=== PATIENT | male | born 1965 | race American Indian/Alaskan Native ===

== ENCOUNTER 2016-08-19 02:48 | Emergency (ER) | payer MEDICARE, OTHER ==
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
[2016-08-19] MEDS ORDERED: BOOSTRIX IM ONE (05:52)
[2016-08-19] MEDS ORDERED: AUGMENTIN 875 MG PO ONE (05:53)
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
[2016-08-19 08:28] VITALS: BP 99/75
== END 2016-08-19 08:27 ==
LOC: ED 02:48
DX: S02.2XXA Fracture of nasal bones, initial encounter for closed fracture (principal); S16.1XXA Strain of muscle, fascia and tendon at neck level, initial encounter; S00.83XA Contusion of other part of head, initial encounter; F10.920 Alcohol use, unspecified with intoxication, uncomplicated; M50.20 Other cervical disc displacement, unspecified cervical region; I10 Essential (primary) hypertension; F17.200 Nicotine dependence, unspecified, uncomplicated; Y04.0XXA Assault by unarmed brawl or fight, initial encounter; Y93.89 Activity, other specified; Y99.8 Other external cause status; Y92.89 Other specified places as the place of occurrence of the external cause
CPT/HCPCS: 70450; 70486; 71250; 72125; 90471; 90715

== ENCOUNTER 2016-10-26 09:54 | Outpatient (CLI) | payer OTHER ==
--- NOTE | 2016-10-26 12:08 | Magnetic Resonance Report ---
MRI CERVICAL SPINE WITH AND WITHOUT CONTRAST INDICATION: Cervical spine herniation. COMPARISON: 08/19/2016 CT. FINDINGS: Axial and sagittal T1 and T2-weighted MRI of the cervical spine performed before and after 15 mL Mutlihance intravenously. Normal vertebral body stature with mild degenerative spurring from C4-C7 noted. Straightening/slight cervical kyphosis apex at C4-C5 with mild adjacent edema signal in C4 and C5 vertebral bodies as well. Moderate C4-C5 disc degeneration and mild C5-C6 and C6-C7 disc narrowing as well. Small Schmorl's node and minimal adjacent edema signal along inferior endplate of C6. Normal remainder marrow signal. Intact craniocervical articulation and cervicomedullary junction. No abnormal intrinsic cord signal or enhancement. No Chiari malformation. On the obtained axial images: C2-C3 and C3-C4 are unremarkable. AP cord caliber approximately 8 mm. C4-C5 demonstrates approximately 3 mm central to right paracentral annular fissure and mild disc protrusion contacting/slightly flattening the cord ventrally, axial series 6, image 15. AP cord caliber approximately 7 mm. No significant foraminal narrowing. C5-C6 and C7-T1 reveal no cord compression or foraminal narrowing. C6-C7 demonstrates slight diffuse disc bulge with slight ventral thecal sac indentation. No cord compression. CONCLUSION: Mid to lower cervical spine degenerative changes, greatest at C4-C5, as detailed above. Please correlate. Thank you for the opportunity to participate in this patient's care.
== END 2016-10-26 09:55 | disposition home or self-care (01) ==
LOC: MRI 09:54
PROVIDERS: ATTEND Student in an Organized Health Care Education/Training Program
DX: M50.20 Other cervical disc displacement, unspecified cervical region (principal); M41.82 Other forms of scoliosis, cervical region; M47.892 Other spondylosis, cervical region; F17.200 Nicotine dependence, unspecified, uncomplicated; I10 Essential (primary) hypertension
CPT/HCPCS: 72156; A9577

== ENCOUNTER 2017-07-20 14:18 | Emergency (ER) | payer MEDICARE ==
--- NOTE | 2017-07-20 16:28 | Emergency Department Report ---
Blank Doc - Documentation Documentation: Patient is a 51-year-old -Turk[place] males poor historian who states he's had a sore throat cough is productive of bloody sputum for approximately 1 year. Patient states he has a primary doctor was not mentioned this to his primary doctor. Patient is having a hard time explaining why he decided to come to the emergency department today as opposed to other days this year. Patient on brief physical exam does have a coarse cough but otherwise lungs were clear. Throat there is some very mild erythema. Patient will have a chest x-ray done to rule out lung cancer tumors or other lesions.
[2017-07-20] MEDS ORDERED: MOTRIN PO ONE (16:32)
[2017-07-20] MEDS ORDERED: TESSALON PERLES PO ONE (16:32)
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
--- NOTE | 2017-07-20 18:21 | XRay Report ---
FINAL REPORT PROCEDURE: XR CHEST ROUTINE 2V TECHNIQUE: PA and lateral chest radiographs were obtained. CPT 17631 HISTORY: hemoptysis COMPARISON: CT 08/19/2016 FINDINGS: Heart: Normal. Mediastinum/Vessels: Normal. Lungs/Pleural space: There is patchy airspace opacity at the left lung base, with no effusion or pneumothorax identified Bony thorax: No acute osseous abnormality. Other: IMPRESSION: Patchy left lung base airspace opacity/infiltrate.
[2017-07-20 18:39] VITALS: BP 115/87
[2017-07-20] MEDS ORDERED: MAGIC MOUTHWASH PO SCH (20:00)
== END 2017-07-20 18:51 | disposition home or self-care (01) ==
LOC: ED 14:18
DX: J18.9 Pneumonia, unspecified organism (principal); J03.90 Acute tonsillitis, unspecified; I10 Essential (primary) hypertension; F17.200 Nicotine dependence, unspecified, uncomplicated; Z91.018 Allergy to other foods
CPT/HCPCS: 71046; 99283

== ENCOUNTER 2018-02-28 12:16 | Outpatient (CLI) | payer MEDICARE ==
[2018-02-28 12:54] LABS: Blood Urea Nitrogen 10 mg/dL (9-20)
--- NOTE | 2018-02-28 23:17 | Magnetic Resonance Report ---
FINAL REPORT PROCEDURE: MR LUMBAR SPINE WO/W CON TECHNIQUE: Magnetic resonance imaging of the lumbar spine was performed using standard pulse sequenc es without contrast material. CPT 79897 HISTORY: M47.816 SPONDYLOSIS WITHOUT MYELOPATHYOUTPATIENT COMPARISON: No prior studies are available for comparison. FINDINGS: Vertebral alignment and height are within normal limits with normal bone marrow signal. Conus medulla ris is normal in location and appearance. L1-2: No significant abnormality . L2-3: No significant abnormality . L3-4: No significant abnormality . L4-5: Minimal degree diffuse disc bulge is noted without significant spinal canal or neural foraminal compromise. L5-S1: There is evidence of bilateral facet and ligamentous hypertrophy which in combination with the minimal degree diffuse disc bulge is producing mild degree bilateral neural foraminal stenosis.. Other: None . IMPRESSION: Bilateral facet and ligamentous hypertrophy and minimal degree diffuse disc bulge producing mild degr ee bilateral neural foraminal stenosis at L5-S1 No acute fracture
== END 2018-02-28 12:17 | disposition home or self-care (01) ==
LOC: MRI 12:16
PROVIDERS: ATTEND Anesthesiology
DX: M48.07 Spinal stenosis, lumbosacral region (principal); M47.816 Spondylosis without myelopathy or radiculopathy, lumbar region; I10 Essential (primary) hypertension
CPT/HCPCS: 36415; 72158; 82565; 84520; A9577

== ENCOUNTER 2018-11-27 01:34 | Emergency (ER) | payer MEDICARE ==
[2018-11-27] MEDS ORDERED: AUGMENTIN 875 MG PO ONE (05:12)
[2018-11-27] MEDS ORDERED: TYLENOL PO ONE (05:12)
[2018-11-27] MEDS ORDERED: IBUPROFEN PO ONE (05:12)
--- NOTE | 2018-11-27 06:22 | Cat Scan Report ---
CT facial bones wo con INDICATION / CLINICAL INFORMATION: Jaw pain s/p fall. TECHNIQUE: All CT scans at this location are performed using CT dose reduction for ALARA by means of automated e xposure control. COMPARISON: 08/19/2016 FINDINGS: No evidence of mandibular fracture. The mandibular condyles are in appropriate location and position. Note is made of lucency to the base of the right hyoid that is well-corticated. This finding was pres ent on the 2017 CT and is unchanged. Retention cysts are demonstrated in the right maxillary sinus and left sphenoid sinus. No fractures are seen through the orbits, paranasal sinuses or zygomatic arches. There is chronic mild deformity of the nasal bone. IMPRESSION: 1. No acute maxillofacial fractures. 2. 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 3. 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 Signer Name: Ric Hamilton MD Signed: 11/27/2018 6:17 AM Workstation Name: [id number]
--- NOTE | 2018-11-27 07:08 | Emergency Department Report ---
ED Fall HPI - General Chief Complaint: Fall Stated Complaint: RT JAW AND NECK PAIN Source: patient, EMS Mode of arrival: Ambulatory - History of Present Illness Initial Comments: Patient is a 53-year-old -[place] male who presents to the ED with complains of lower jaw pain and dental caries and swollen gums after he fell on it have been hit his lower jaw on the bathtub about 4 days ago. Patient states that initially he thought the pain got really but in the last 2 days pain is worsens or that any movement of his lower jaw makes the pain worse. Patient denies loss of consciousness, assault, dizziness, syncope, headache, chest pain, shortness of breath, neck pain, back pain, hip pain, abdominal pain or fever, chills or sore throat and hemoptysis and nosebleed. 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 denies: neck pain, numbness, weakness, chest paint, shortness of breath, abdominal pain, hematuria, unable to walk, confusion, other - Related Data Previous Rx's Medication Instructions Recorded Last Taken Type Amoxicillin/K Clav Tab [Augmentin 1 tab PO Q12HR #14 tab 08/19/16 Unknown Rx 875 mg] Chlorhexidine Mouthwash [Peridex] 15 ml MM BID 7 Days bottle 08/19/16 Unknown Rx Ibuprofen [Motrin] 600 mg PO Q8H PRN #15 tablet 08/19/16 Unknown Rx Neomy/Baci/Polymyx Oint [Triple 1 applic TP TID PRN #1 tube 08/19/16 Unknown Rx Antibiotic] Azithromycin [Zithromax Z-SAEED] 250 mg PO DAILY #6 tablet 07/20/17 Unknown Rx Benzonatate [Tessalon Perle] 100 mg PO Q6H PRN #20 capsule 07/20/17 Unknown Rx Ibuprofen [Motrin] 600 mg PO Q8H PRN #30 tablet 07/20/17 Unknown Rx Prednisone [predniSONE 10 mg 10 mg PO .TAPER #1 tab.ds.pk 07/20/17 Unknown Rx (6-Day Pack, 21 Tabs)] Acetaminophen/Codeine [Tylenol 1 tab PO Q6H PRN #14 tab 08/02/17 Unknown Rx /Codeine # 3 tab] Aspirin 81 mg PO DAILY #30 tab.chew 08/02/17 Unknown Rx Ibuprofen [Motrin] 600 mg PO Q8H PRN #30 tablet 08/02/17 Unknown Rx Acetaminophen/Codeine [Tylenol 1 tab PO Q6H PRN #10 tab 11/27/18 Unknown Rx /Codeine # 3 tab] Cyclobenzaprine [Flexeril] 10 mg PO Q8H PRN #12 tablet 11/27/18 Unknown Rx Ibuprofen [Motrin] 800 mg PO Q8HR PRN #24 tablet 11/27/18 Unknown Rx cephALEXin [Keflex] 500 mg PO Q8HR #30 cap 11/27/18 Unknown Rx Allergies Allergy/AdvReac Type Severity Reaction Status Date / Time tomato Allergy Rash Verified 08/02/17 12:06 ED Review of Systems ROS: Stated complaint: RT JAW AND NECK PAIN Other details as noted in HPI Constitutional: denies: chills, fever Eyes: denies: eye pain, eye discharge, vision change ENT: dental pain, other (lower jaw pain). denies: ear pain Respiratory: denies: cough, shortness of breath, wheezing Cardiovascular: denies: chest pain, palpitations Endocrine: no symptoms reported Gastrointestinal: denies: abdominal pain, nausea, vomiting, diarrhea Genitourinary: denies: urgency, dysuria Musculoskeletal: denies: back pain, joint swelling, arthralgia Skin: denies: rash, lesions Neurological: denies: headache, weakness, paresthesias Psychiatric: denies: anxiety, depression Hematological/Lymphatic: denies: easy bleeding, easy bruising ED Past Medical Hx - Past Medical History Previous Medical History?: Yes Hx Hypertension: Yes - Surgical History Past Surgical History?: Yes Additional Surgical History: leg surg total r) hip - Social History Smoking Status: Current Every Day Smoker Substance Use Type: None - Medications Home Medications: Home Medications Medication Instructions Recorded Confirmed Last Taken Type Amoxicillin/K Clav Tab [Augmentin 1 tab PO Q12HR #14 tab 08/19/16 Unknown Rx 875 mg] Chlorhexidine Mouthwash [Peridex] 15 ml MM BID 7 Days bottle 08/19/16 Unknown Rx Ibuprofen [Motrin] 600 mg PO Q8H PRN #15 tablet 08/19/16 Unknown Rx Neomy/Baci/Polymyx Oint [Triple 1 applic TP TID PRN #1 tube 08/19/16 Unknown Rx Antibiotic] Azithromycin [Zithromax Z-SAEED] 250 mg PO DAILY #6 tablet 07/20/17 Unknown Rx Benzonatate [Tessalon Perle] 100 mg PO Q6H PRN #20 capsule 07/20/17 Unknown Rx Ibuprofen [Motrin] 600 mg PO Q8H PRN #30 tablet 07/20/17 Unknown Rx Prednisone [predniSONE 10 mg 10 mg PO .TAPER #1 tab.ds.pk 07/20/17 Unknown Rx (6-Day Pack, 21 Tabs)] Acetaminophen/Codeine [Tylenol 1 tab PO Q6H PRN #14 tab 08/02/17 Unknown Rx /Codeine # 3 tab] Aspirin 81 mg PO DAILY #30 tab.chew 08/02/17 Unknown Rx Ibuprofen [Motrin] 600 mg PO Q8H PRN #30 tablet 08/02/17 Unknown Rx Acetaminophen/Codeine [Tylenol 1 tab PO Q6H PRN #10 tab 11/27/18 Unknown Rx /Codeine # 3 tab] Cyclobenzaprine [Flexeril] 10 mg PO Q8H PRN #12 tablet 11/27/18 Unknown Rx Ibuprofen [Motrin] 800 mg PO Q8HR PRN #24 tablet 11/27/18 Unknown Rx cephALEXin [Keflex] 500 mg PO Q8HR #30 cap 11/27/18 Unknown Rx ED Physical Exam - General Limitations: No Limitations General appearance: alert, in no apparent distress - Head Head exam: Present: atraumatic, normocephalic, normal inspection - Eye Eye exam: Present: normal appearance, PERRL, EOMI Pupils: Present: normal accommodation - ENT ENT exam: Present: mucous membranes moist, TM's normal bilaterally, normal external ear exam, other (palpable tenderness of lower jaw with diffuse dental caries) - Neck Neck exam: Present: normal inspection, full ROM. Absent: tenderness - Respiratory Respiratory exam: Present: normal lung sounds bilaterally. Absent: respiratory distress, wheezes, rales, rhonchi, stridor, chest wall tenderness, decreased breath sounds, prolonged expiratory - Cardiovascular Cardiovascular Exam: Present: regular rate, normal rhythm, normal heart sounds. Absent: systolic murmur, diastolic murmur, rubs, gallop - GI/Abdominal GI/Abdominal exam: Present: soft, normal bowel sounds. Absent: distended, tenderness, guarding, hyperactive bowel sounds, hypoactive bowel sounds, organomegaly - Rectal Rectal exam: Present: deferred - Extremities Exam Extremities exam: Present: normal inspection, full ROM, normal capillary refill - Back Exam Back exam: Present: normal inspection, full ROM - Neurological Exam Neurological exam: Present: alert, oriented X3, CN II-XII intact, normal gait, reflexes normal - Psychiatric Psychiatric exam: Present: normal affect, normal mood, anxious - Skin Skin exam: Present: warm, dry, intact, normal color. Absent: rash ED Course Vital Signs 11/27/18 11/27/18 01:50 01:51 Temperature 99.4 F Pulse Rate 91 H Blood Pressure 123/86 O2 Sat by Pulse 98 Oximetry - Reevaluation(s) Reevaluation #1: 11/27/18 07:15 This is a 53-year-old male who presented to the ED with lower jaw pain and dental pain after he slipped and fell off a bathtub 4 days ago. Patient states that the pain has worsened in the last 2 days. In the ED, patient is alert and oriented 3 and is not in distress. Patient was treated for pain and facial CT scan without contrast shows no acute fractures or subluxations. On reevaluation, patient felt better with, pain well controlled. Patient was discharged home on pain medications and advised to follow-up with his primary care physician in 7-10 days for reevaluation. Patient was also advised to return to the ED immediately if symptoms get worse. ED Medical Decision Making - Radiology Data Radiology results: report reviewed, image reviewed Findings [facility] [address] [place] [address] Cat Scan Report Signed Patient: TIANA PERALES MR#: [id number] 6 : 1965 Acct:[id number] Age/Sex: 53 / M ADM Date: 11/27/18 Loc: ED Attending Dr: Ordering Physician: SP EDMONDSON Date of Service: 11/27/18 Procedure(s): CT facial bones wo con Accession Number(s): [id number] cc: SP EDMONDSON CT facial bones wo con INDICATION / CLINICAL INFORMATION: Jaw pain s/p fall. TECHNIQUE: All CT scans at this location are performed using CT dose reduction for ALARA by means of automated exposure control. COMPARISON: 08/19/2016 FINDINGS: No evidence of mandibular fracture. The mandibular condyles are in appropriate location and position. Note is made of lucency to the base of the right hyoid that is well-corticated. This finding was present on the 2017 CT and is unchanged. Retention cysts are demonstrated in the right maxillary sinus and left sphenoid sinus. No fractures are seen through the orbits, paranasal sinuses or zygomatic arches. There is chronic mild deformity of the nasal bone. IMPRESSION: 1. No acute maxillofacial fractures. 2. 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 3. 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 Signer Name: Ric Hamilton MD Signed: 11/27/2018 6:17 AM Workstation Name: [id number] Transcribed By: JAVIER Dictated By: Ric Hamilton MD Electronically Authenticated By: Ric Hamilton MD Signed Date/Time: 11/27/18 0617 - Medical Decision Making This is a 53-year-old male who presented to the ED with lower jaw pain and dental pain after he slipped and fell off a bathtub 4 days ago. Patient states that the pain has worsened in the last 2 days. In the ED, patient is alert and oriented 3 and is not in distress. Patient was treated for pain and facial CT scan without contrast shows no acute fractures or subluxations. On reevaluation, patient felt better with, pain well controlled. Patient was discharged home on pain medications and advised to follow-up with his primary care physician in 7-10 days for reevaluation. Patient was also advised to return to the ED immediately if symptoms get worse. - Differential Diagnosis Facial bone fracture; Dental caries; Dental abscess; gingivitis Critical care attestation.: If time is entered above; I have spent that time in minutes in the direct care of this critically ill patient, excluding procedure time. ED Disposition Clinical Impression: Contusion of face Qualifiers: Encounter type: initial encounter Qualified Code(s): S00.83XA - Contusion of other part of head, initial encounter Disposition: - TO HOME OR SELFCARE Is pt being admited?: No Does the pt Need Aspirin: No Condition: Stable Instructions: Contusion in Adults (ED) Additional Instructions: Take pain medication and muscle relaxant as needed with food, follow up with your primary care physician in 5-7 days for reevaluation. Return to the ED immediately if symptoms get worse. Prescriptions: Cyclobenzaprine [Flexeril] 10 mg PO Q8H PRN #12 tablet PRN Reason: Muscle Spasm cephALEXin [Keflex] 500 mg PO Q8HR #30 cap Ibuprofen [Motrin] 800 mg PO Q8HR PRN #24 tablet PRN Reason: Pain , Severe (7-10) Acetaminophen/Codeine [Tylenol /Codeine # 3 tab] 1 tab PO Q6H PRN #10 tab PRN Reason: Pain , Severe (7-10) Referrals: ANTWAN OLIVARES III, [employer]IOR PROGRAM[employer]LY[employer] [Primary Care Provider] - 3-5 Days Time of Disposition: 07:05 Print Language: ZAMBIAN
[2018-11-27 07:31] VITALS: BP 120/80
== END 2018-11-27 07:30 | disposition home or self-care (01) ==
LOC: ED 01:34
DX: S00.83XA Contusion of other part of head, initial encounter (principal); I10 Essential (primary) hypertension; F17.200 Nicotine dependence, unspecified, uncomplicated; Z98.890 Other specified postprocedural states; Z79.899 Other long term (current) drug therapy; Z91.018 Allergy to other foods; W18.2XXA Fall in (into) shower or empty bathtub, initial encounter; Y93.89 Activity, other specified; Y92.89 Other specified places as the place of occurrence of the external cause; Y99.8 Other external cause status
CPT/HCPCS: 70486

== ENCOUNTER 2020-06-21 23:22 | Emergency (ER) | payer MEDICARE ==
[2020-06-22 00:17] VITALS: BP 128/84
[2020-06-22] MEDS ORDERED: KETOROLAC 10 MG TAB PO ONE (01:03)
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
== END 2020-06-22 01:35 | disposition home or self-care (01) ==
LOC: ED 23:22
DX: G89.29 Other chronic pain (principal); M54.2 Cervicalgia; F17.200 Nicotine dependence, unspecified, uncomplicated; I10 Essential (primary) hypertension; Z91.018 Allergy to other foods; Z79.82 Long term (current) use of aspirin; Z79.899 Other long term (current) drug therapy
CPT/HCPCS: 99283